=== PATIENT | male | born 1995 | race Caucasian/White ===

== ENCOUNTER 2024-05-27 06:15 | Day surgery (SDC) | payer OTHER ==
[~2024-05-27] VITALS: Ht 170.2 cm; Wt 74.8 kg
[2024-05-27] MEDS ORDERED: LR 1,000 ML IV SCH (06:35)
[2024-05-27] MEDS ORDERED: LIDOCAINE 2% 100MG/5ML SDV (FOR ANES.) As Ordered ONE (06:59)
[2024-05-27] MEDS ORDERED: propofoL 200 MG/20 ML VIAL As Ordered ONE (06:59)
[2024-05-27] MEDS ORDERED: fentaNYL 100 MCG/2 ML INJECTION As Ordered ONE (07:00)
[2024-05-27] MEDS ORDERED: dexAMETHasone 10MG/1ML VIAL PRES.FREE PN ONE (07:00)
[2024-05-27] MEDS ORDERED: MIDAZOLAM INJ 2MG/2ML VIAL IV PRN (07:00)
[2024-05-27] MEDS ORDERED: MIDAZOLAM INJ 2MG/2ML VIAL As Ordered ONE (07:00)
[2024-05-27] MEDS ORDERED: ROPIvacaine 0.5% 30ML VIAL PN ONE (07:00)
[2024-05-27] MEDS ORDERED: LIDOCAINE 1% SDV 5ML VIAL PN ONE (07:00)
[2024-05-27] MEDS: BUPivacaine LIPOSOME/PF 266MG 20ML VIAL (13.3MG/ML)(EXPAREL) As Ordered ONE (07:14)
[2024-05-27] MEDS: ceFAZolin SOD 2 GM in IV 1 EA IV ONE (07:39)
[2024-05-27] MEDS: TRANEXAMIC ACID 100 MG/ML 10ML VIAL As Ordered ONE (07:56)
[2024-05-27] MEDS ORDERED: ACETAMINOPHEN 1000MG/100ML IV BAG As Ordered ONE (08:23)
[2024-05-27] MEDS ORDERED: ONDANSETRON 4MG 2ML VIAL As Ordered ONE (08:23)
[2024-05-27] MEDS ORDERED: KETOROLAC 60MG 2ML VIAL As Ordered ONE (08:23)
[2024-05-27] MEDS: EPINEPHrine 1MG/ML INJ 30ML MD-VIAL As Ordered ONE (08:32)
[2024-05-27] MEDS ORDERED: fentaNYL 100 MCG/2 ML INJECTION IV PRN (09:50)
[2024-05-27] MEDS: oxyCODONE 5MG TAB PO PRN (10:06)
[2024-05-27] MEDS: HYDROMORPHONE HCL 0.5 MG/ 0.5 ML SYRINGE IV PRN (11:29)
[2024-05-27] MEDS: ONDANSETRON 4MG 2ML VIAL IV PRN (11:29)
[2024-05-27] MEDS: oxyCODONE 20MG CR TAB PO STA (11:34)
[2024-05-27 11:55] VITALS: BP 137/73; TEMP 97.3; O2SAT 99
== END 2024-05-27 13:00 | disposition home or self-care (01) ==
LOC: M SDC 06:15
PROVIDERS: ATTEND Orthopaedic Surgery
DX: M23.221 Derangement of posterior horn of medial meniscus due to old tear or injury, right knee (principal); F17.290 Nicotine dependence, other tobacco product, uncomplicated
CPT/HCPCS: 29882; C1713; J0131; J0171; J0665; J0666; J0690; J1100; J1171; J1885; J2250; J2405; J3010